=== PATIENT | male | born 1970 ===

== ENCOUNTER → 2022-03-01 | Outpatient (CLI) | payer OTHER ==
[~2022-03-01] VITALS: Ht 187 cm; Wt 131.0 kg
[~2022-03-01] MED LIST: CATHETER FLUSH 10 ML SYR IVP PRN; REGADENOSON 0.4 MG/5 ML SYR (LEXISCAN) IV NR; REGADENOSON 0.4 MG/5 ML SYR (LEXISCAN) IV ONE
[2022-03-01 11:50] VITALS: BP 159/104
--- NOTE | 2022-03-01 13:18 | NUCLEAR STRESS TEST ---
REGADENOSON NUCLEAR STRESS Date of procedure: 03/01/2022. Primary care provider: Sukhwinder Steiner MD Admitting physician: Julio Cristina Jr., MD. INDICATION: Persistent atrial fibrillation. BASELINE ELECTROCARDIOGRAM: Atrial fibrillation with a rapid ventricular rate of [address] changes. STRESS TEST PROCEDURE: The patient was administered 0.4 mg of intravenous Regadenoson. The resting heart rate was 115 bpm and the peak heart rate was 151 bpm. The resting blood pressure was 159/104 mmHg and the minimum blood pressure was 122/87 mmHg. This represents a normal heart rate and a normal blood pressure response to Regadenoson. The test was stopped due to the protocol. There was no chest discomfort during the test. The patient was in atrial fibrillation for the duration of the test. There were no significant stress induced electrocardiogram changes. NUCLEAR PROCEDURE: The patient was administered 11 mCi of intravenous technetium 99m Tetrofosmin at rest for the rest images. The patient was subsequently administered 31.7 mCi of intravenous technetium 99m Tetrofosmin at peak stress for the stress images. Following an appropriate wait after each injection, imaging was obtained. The images were subsequently processed and reformatted in the usual views. Gated imaging was obtained. The image quality was adequate with a mild degree of gastrointestinal attenuation artifact. CT attenuation correction was used as a adjunct to standard imaging. Both the corrected and un corrected images were reviewed for interpretation. NUCLEAR RESULTS: There was a small, moderate intensity, partially reversible distal lateral and apical defect with a small amount of inducible ischemia with a summed stress score of 6 and a summed difference score of 2. There was normal left ventricular chamber size with an end-diastolic volume of 83 mL and an end- systolic volume of 34 mL. There was no evidence of transient ischemic dilatation. The TID ratio was 1.12. There was normal wall motion in all segments with a calculated ejection fraction of 59%. IMPRESSION: 1. Normal heart rate and blood pressure response to regadenoson with resting tachycardia. 2. There was no chest discomfort or electrocardiogram changes during the test. 3. The patient was in atrial fibrillation for the duration of the test. 4. There was a small, moderate intensity, partially reversible distal lateral and apical defect with a small amount of inducible ischemia with a summed stress score of 6 and a summed difference score of 2. 5. There was normal wall motion in all segments with a calculated ejection fraction of 59%. 6. This is an abnormal result although represents a low risk for possible future coronary ischemic events. Certain portions of this document may have been dictated utilizing voice recognition technology. Inherent to this technology, typographical and grammatical errors may exist. As much as I am diligent to identify and correct these mistakes, some errors may remain in the document. JULIO CRISTINA JR, MD Mar 01, 2022 13:18
== END ==
LOC: CARD 10:09
PROVIDERS: ATTEND Family Medicine
DX: I51.7 Cardiomegaly (principal); I48.19 Other persistent atrial fibrillation
CPT/HCPCS: 78452; 93017; A9502; C8929; 93306

== ENCOUNTER 2022-03-05 08:37 | Day surgery (SDC) | payer OTHER ==
[2022-03-05] VITALS (8 sets, daily range): BP systolic 121–127; BP diastolic 75–94
[~2022-03-05] VITALS: Ht 187.9 cm; Wt 133.8 kg
[2022-03-05] MEDS ORDERED: NS IV 1000 ML 1,000 ML ONE (08:44)
[2022-03-05] MEDS: NS IV 1000 ML 1,000 ML IV SCH ×2 (09:15→10:46)
[2022-03-05] MEDS ORDERED: proPOfol 200 MG/20 ML (DIPRIVAN) VIAL IV ONE (09:27)
[2022-03-05] MEDS ORDERED: MIDAZOLAM 2 MG/2 ML (VERSED) VIAL ONE (09:27)
[2022-03-05] MEDS ORDERED: TMSL.4C PO (09:41)
[2022-03-05] MEDS ORDERED: ATOR10TA66 PO (09:41)
[2022-03-05] MEDS ORDERED: NITR0.4T42 SL (09:41)
[2022-03-05] MEDS ORDERED: HYDR12.56 PO (09:41)
[2022-03-05] MEDS ORDERED: MTP100TCR PO (09:41)
[2022-03-05] MEDS ORDERED: TEST200V21 IM (09:41)
[2022-03-05] MEDS ORDERED: LEVO5TAB28 PO (09:41)
[2022-03-05] MEDS ORDERED: LISI20TA26 PO (09:41)
[2022-03-05] MEDS ORDERED: RIVA20TA PO (09:41)
--- NOTE | 2022-03-05 10:00 | Anesthesia-General Post-Op ---
MAC Patient Condition Mental Status/LOC: Same as Preop Cardiovascular: Satisfactory Nausea/Vomiting: Absent Respiratory: Satisfactory Pain: Controlled Complications: Absent Post Op Complications Complications None Follow Up Care/Instructions Patient Instructions None needed. Anesthesiology Discharge Order Discharge Order Patient is doing well, no complaints, stable vital signs, no apparent adverse anesthesia problems. No complications reported per nursing. MARISA PEREZ CRNA Mar 05, 2022 10:00
--- NOTE | 2022-03-05 10:01 | Cardiac Procedure Note-[facility] ---
Cardiology Procedures Date of Procedure 03/05/22 DIRECT-CURRENT CARDIOVERSION INDICATION: Persistent atrial fibrillation. PROCEDURE: After informed consent and in the fasting state, deep sedation was provided by the anesthesia department. I subsequently performed direct-current cardioversion with 1 synchronized biphasic shock at 150 J with successful conversion of atrial fibrillation to sinus rhythm. IMPRESSION: 1. Status post successful direct-current cardioversion with 1 synchronized biphasic shock at 150 J with conversion of atrial fibrillation to sinus rhythm. Certain portions of this document may have been dictated utilizing voice recognition technology. Inherent to this technology, typographical and grammatical errors may exist. As much as I am diligent to identify and correct these mistakes, some errors may remain in the document. BARBARA BURNS JR, MD Mar 05, 2022 10:01
== END 2022-03-05 10:35 | disposition home or self-care (01) ==
LOC: CATH 08:37
PROVIDERS: ATTEND Internal Medicine Cardiovascular Disease
DX: I48.19 Other persistent atrial fibrillation (principal); I10 Essential (primary) hypertension; E78.2 Mixed hyperlipidemia; E66.9 Obesity, unspecified; Z68.37 Body mass index [BMI] 37.0-37.9, adult; G47.33 Obstructive sleep apnea (adult) (pediatric); Z79.899 Other long term (current) drug therapy; Z79.01 Long term (current) use of anticoagulants; Z28.310 Unvaccinated for COVID-19
CPT/HCPCS: 92960; 93005